=== PATIENT | male | born 1980 | race Caucasian/White ===

== ENCOUNTER 2022-01-07 18:44 | Emergency (ER) | payer OTHER, SELFPAY ==
[2022-01-07 19:21] VITALS: BP 133/94; PULSE 105; RESP 18; TEMP 36.7; O2SAT 99
--- NOTE | 2022-01-07 20:47 | ED.DENTAL ---
HPI - Dental/Oral General Chief complaint: Dental/Oral Stated complaint: facial infection Time Seen by Provider: 01/07/22 20:20 Source: patient Mode of arrival: ambulatory Limitations: no limitations History of Present Illness HPI Narrative: Patient is a 41 y/o male who presents to the ED with c/o left lower dental pain and swelling. Patient reports he developed pain and swelling in his left lower gumline yesterday, which continued to worsen today. He has not taken anything for symptoms. He has a history of frequent dental infections and poor dentition. Denies any fever, nausea, vomiting, drainage. Patient states he has a dentist, but has not made an appointment yet. Teeth map: 1. several broken teeth, tenderness to gumline, swelling to outer gumline Related Data Allergies Allergy/AdvReac Type Severity Reaction Status Date / Time No Known Allergies Allergy Verified 01/07/22 18:45 Review of Systems Review of Systems: CONSTITUTIONAL: Denies fever, chills, or sweats. ENT: Reports left lower gumline dental pain and swelling. GASTROINTESTINAL: Denies nausea, vomiting. All systems reviewed & are unremarkable except as noted in HPI and below PMFSH Past Medical History Medical History (Updated 01/07/22 @ 22:25 by Gisell Rodriguez PA-C) No pertinent past medical history Surgical History Surgical History (Updated 01/07/22 @ 20:52 by Gisell Rodriguez PA-C) No pertinent past surgical history Social History Social History (Updated 01/07/22 @ 20:52 by Gisell Rodriguez PA-C) Smoking status: Current every day smoker Exam Narrative: GENERAL: Well appearing, well-nourished, non-toxic, in mild acute distress. HEAD: Normocephalic, atraumatic. THROAT: Pharynx clear, no exudate. MMs moist. Extremely poor dentition, several broken teeth. Left lower outer posterior gumline with significant tenderness to palpation, diffuse swelling. No definitive fluctuance appreciated but patient poorly tolerated exam/opening mouth. NECK: Supple. Swelling to left lower gumline/jawline. No adenopathy palpated. RESPIRATORY: Airway patent, respirations nonlabored. Clear to auscultation bilaterally, no rales, rhonchi, wheezing. CARDIOVASCULAR: Regular rate and rhythm without murmurs, rubs, or gallops. Radial pulses 2+ and equal bilaterally. MUSCULOSKELETAL: Moves all extremities. Strength/ROM intact without gross deformities. SKIN: Warm, dry, normal color. No rashes. NEURO: A&O X3. Speech clear. Cranial nerves II-XII grossly intact. Steady gait. No ataxic movements. PSYCHIATRIC: Appropriate mood and affect. Normal interaction. Course Vital Signs Vital signs: Vital Signs Temperature 98.1 F 01/07/22 19:21 Pulse Rate 105 H 01/07/22 19:21 Respiratory Rate 18 01/07/22 19:21 Blood Pressure 133/94 H 01/07/22 19:21 Pulse Oximetry 99 01/07/22 19:21 Oxygen Delivery Room Air 01/07/22 19:21 Temperature 98.1 F 01/07/22 19:21 Pulse Rate 105 H 01/07/22 19:21 Respiratory Rate 18 01/07/22 19:21 Blood Pressure 133/94 H 01/07/22 19:21 Pulse Oximetry 99 01/07/22 19:21 Oxygen Delivery Room Air 01/07/22 19:21 MDM - Dental/Oral MDM Narrative Medical decision making narrative: Patient presented to ED with 2-day history of L lower dental pain and swelling. Very poor dentition. Patient did have a mild amount of swelling to left lower jaw/gum line on exam, concerning for possible abscess. No definitive area of fluctuance appreciated on exam however. I did discuss getting imaging to further evaluate potential abscess but patient denied. 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 I discussed risks of incomplete evaluation, however patient understands risks and is adamant he needs to leave soon. I will give dose of Toradol in the ED and send home with a few [place], as well as Augmentin. Patient states he has a dentist already. I recommended follow-up with dentist as soon as possible. He was give
[2022-01-07] MEDS: AMOXICILLIN/CLAVULANATE K 875-125 MG TAB 1 TABLET PO (21:02)
[2022-01-07] MEDS: KETOROLAC (*BKC) 60 MG/2 ML VIAL IM (21:02)
== END 2022-01-07 21:08 | disposition home or self-care (01) ==
LOC: ANHED 21:02
PROVIDERS: Emergency Provider Emergency Medicine
DX: K04.7 Periapical abscess without sinus (principal); K02.9 Dental caries, unspecified; F17.200 Nicotine dependence, unspecified, uncomplicated
CPT/HCPCS: 96372; 99283; A9270; J1885